=== PATIENT | female | born 1970 | race Caucasian/White ===

== ENCOUNTER → 2016-11-29 | Day surgery (SDC) | payer BC, OTHER ==
[~2016-11-29] VITALS: Ht 167.6 cm; Wt 77.0 kg
[~2016-11-29] MED LIST: ALPR.25 PO; BUPIVACAINE/EPINEPHRINE 0.5% PF 30 ML VIAL ONE; FAMOTIDINE 20 MG/2 ML VIAL ONE; IMIT25TA PO; INSULIN HUMAN REGULAR 1,000 UNITS/10 ML VIAL SQ PRN; LACTATED RINGER'S 1000 ML IV SCH; LAMI250T PO; LIDOCAINE 1%/EPINEPHrine 1:100,000 SOLN 30 ML VIAL ONE; METOPROLOL TARTRATE 25 MG TAB PO PRN; MIDAZOLAM HCL 2 MG/2 ML VIAL ONE; MORPHINE SULFATE 4 MG/ML INJ IV PRN; MORPHINE SULFATE 4 MG/ML INJ ONE; MULTTAB67 PO; ONDANSETRON HCL 4 MG/2 ML VIAL IV PUSH PRN; PROMETHAZINE INJ 25 MG/ML VIAL ONE; PROPOFOL 200 MG/20 ML AMP IV ONE; SODIUM CHLORID 0.9% 500 ML IV SCH; oxyCODONE/ACETAMINOPHEN 5 MG/325 MG TAB PO PRN
[2016-11-29 08:30] VITALS: BP 116/64; PULSE 50; RESP 16; TEMP 98.8; O2SAT 100
--- NOTE | 2016-11-29 08:58 | PD.HP.UP ---
H&P Update Note The Pre-Admit History and Physical Examination regarding the above named patient was reviewed (including, but not limited to, vital signs, heart, lungs, co-morbid conditions), and upon re-examination it is noted that: the patient's condition has not significantly changed since the last examination. Juanjose Rudd MD Nov 29, 2016 08:58
[2016-11-29 09:10] LABS: AUTOMATED NEUTROPHIL # 4.5 TH/MM3 (1.8-7.7); BASOPHIL # 0.1 TH/MM3 (0-0.2); BASOPHIL % 0.8 % (0.0-2.0); EOSINOPHIL # 0.3 TH/MM3 (0-0.4); HEMO FLAGS DIFF FINAL; LYMPH % 27.8 % (9.0-44.0); LYMPHOCYTE # 2.3 TH/MM3 (1.0-4.8); MEAN CELL VOLUME 86.3 FL (80.0-100.0); MEAN CORPUSCULAR HEMOGLOBIN 30.2 PG (27.0-34.0); MEAN CORPUSCULAR HGB CONC 34.9 % (32.0-36.0); NEUT % 53.4 % (16.0-70.0); PLATELET COUNT 293 TH/MM3 (150-450); RED BLOOD COUNT 4.75 MIL/MM3 (4.00-5.30); RED CELL DISTRIBUTION WIDTH 12.6 % (11.6-17.2); WHITE BLOOD COUNT 8.4 TH/MM3 (4.0-11.0)
[2016-11-29 12:13] VITALS: BP 115/66; PULSE 62; RESP 18; TEMP 98.2; O2SAT 100
--- NOTE | 2016-12-05 08:14 | MP ---
cc: NANDO MOLINA M.D. DATE OF SURGERY November 29, 2016 PREOPERATIVE DIAGNOSES 1. History of colonic polyps. 2. Grade 3 hemorrhoids PROCEDURES 1. Colonoscopy to cecum. 2. Exam under anesthesia with anal rectoplasty. POSTOPERATIVE DIAGNOSES 1. Normal cecum, ileocecal valve. 2. No polyps. 3. Grade 3 internal-external hemorrhoids. SURGEON Dr. Molina PROCEDURE The patient was placed in the left lateral decubitus position. After adequate anesthesia sedation, rectal exam confirmed the emptiness the rectal vault. The Olympus colonoscope was introduced into the rectum and advanced easily under direct vision through the proximal colon until the cecum was identified. The ileocecal valve was normal. There were no vascular abnormalities noted in the cecum. The colonoscope was then gradually withdrawn, visualizing the mucosal surface throughout the distal colon. No inflammatory changes were seen. No polyps were noted. Rare diverticulum were seen in the rectosigmoid. Next, the patient was positioned in the prone jackknife position, buttocks taped apart, prepped with Betadine solution and draped in the usual sterile fashion. Additional anesthesia was obtained by injection of 1% Xylocaine/0.5% Marcaine with epinephrine. The anal canal was gently dilated and a half-dhaliwal retractor inserted. Examination revealed rather large hemorrhoids in the right posterior quadrant and the right anterior quadrant. There was a smaller hemorrhoid in the left lateral position. Initially an elliptical incision was made over the hemorrhoidal mass in the left lateral quadrant taking the tissue off the internal and external sphincters. The pedicle was narrowed and divided using electrocautery. The mucosal defect and anoderm were then closed using a running chromic catgut suture with several [id number] sutures of chromic catgut for hemostasis. Similar dissection was then performed in the right posterior and right anterior positions, closing each incision in a similar fashion. At completion, the lumen size of the anal canal was adequate. All incision lines were hemostatic. Small Surgicel dressing was placed in the anal canal and a large fluff dressing placed externally. The patient tolerated the procedure quite well and was brought to the recovery room in stable condition. Sponge and needle counts were correct at the end of the procedure. MD CORY Conrad/BOBBY /1:16 PM /8:07 AM
== END | disposition home or self-care (01) ==
LOC: HSDC 07:28
PROVIDERS: ATTEND Colon & Rectal Surgery
DX: K64.2 Third degree hemorrhoids (principal); K64.4 Residual hemorrhoidal skin tags; Z86.010 Personal history of colon polyps
CPT/HCPCS: 00902; 45378; 46260; 85025; 88304; J2250; J2270; J2550; J3010; J7120